=== PATIENT | female | born 1965 | race African-American/Black ===

== ENCOUNTER 2016-12-22 17:42 | Emergency (ER) | payer MEDICAID, OTHER ==
[~2016-12-22] VITALS: Ht 167.6 cm; Wt 90.0 kg
[2016-12-22] MEDS ORDERED: methylPREDNISolone SOD SUCC 125 MG/2 ML ONE ×2 (17:46→22:23)
[2016-12-22] MEDS: RACEPINEPHRINE INH 2.25%, 0.5ML NPPB PRN (17:52)
[2016-12-22] MEDS ORDERED: SODIUM CHLORIDE 0.9% 1,000ML IVBOLUS ONE (18:00)
[2016-12-22] MEDS ORDERED: methylPREDNISolone SOD SUCC 125 MG/2 ML IVPush ONE (18:00)
[2016-12-22] MEDS ORDERED: EPINEPHRINE 1 MG/ML, 1ML SQ ONE (18:00)
[2016-12-22] MEDS ORDERED: LORazepam 2 MG/ML, 1ML IVPush ONE (18:00)
[2016-12-22] MEDS ORDERED: PLEASE ENTER HEIGHT AND WEIGHT MC SCH (18:00)
[2016-12-22] MEDS ORDERED: SODIUM CHLORIDE FLUSH 10ML SYR IVF ONE (18:00)
[2016-12-22] MEDS ORDERED: LORazepam 2 MG/ML, 1ML ONE (18:02)
[2016-12-22] MEDS ORDERED: EPINEPHRINE 1 MG/ML, 1ML ONE (18:02)
[2016-12-22 18:29] LABS: HEMATOCRIT 43.4 % (34.6-47.8); HEMOGLOBIN 14.1 g/dL (11.7-16.4); WHITE BLOOD COUNT 15.7 x10^3/uL (3.4-10)
[2016-12-22] MEDS ORDERED: PLEASE ENTER ALLERGIES MC SCH ×2 (18:30)
[2016-12-22 18:41] LABS: BLOOD UREA NITROGEN 19 mg/dL (7-18)
[2016-12-22 18:50] LABS: DIFF TOTAL CELLS COUNTED 100 CELL DIFF
[2016-12-22 18:51] LABS: ASPARTATE AMINO TRANSFERASE 22 U/L (15-37)
[2016-12-22 19:01] LABS: ANISOCYTOSIS 1+; LARGE PLATELETS 1+
[2016-12-22 19:03] LABS: VERIFY COUNTS? YES
[2016-12-22] MEDS ORDERED: FAMOTIDINE 20 MG/2 ML ONE (20:55)
[2016-12-22] MEDS ORDERED: FAMOTIDINE 20 MG/2 ML IVP ONE (21:00)
[2016-12-22] MEDS ORDERED: FAMOTIDINE 20 MG/2 ML IVPush SCH (21:30)
[2016-12-22] MEDS ORDERED: methylPREDNISolone SOD SUCC 125 MG/2 ML IVPush SCH (21:30)
[2016-12-22] MEDS ORDERED: ACETAMINOPHEN 325 MG TABLET PO PRN (21:30)
[2016-12-22] MEDS ORDERED: BISACODYL 10 MG SUPP PR PRN (21:30)
[2016-12-22] MEDS ORDERED: SODIUM CHLORIDE FLUSH 10ML SYR IVF SCH (21:30)
[2016-12-22] MEDS ORDERED: SODIUM CHLORIDE FLUSH 10ML SYR IVF PRN (21:30)
[2016-12-22] MEDS ORDERED: POLYETHYLENE GLYCOL 17 GM PACKET PO PRN (21:30)
[2016-12-22] MEDS ORDERED: HEPARIN 5,000 UNITS/ML, 1ML SQ SCH (21:30)
[2016-12-22] MEDS ORDERED: ONDANSETRON 2MG/ML, 2ML IVPush PRN (21:30)
[2016-12-22] MEDS ORDERED: POTASSIUM CHLORIDE 20 MEQ TAB.ER.PRT PO ONE (22:00)
[2016-12-22] MEDS ORDERED: DIPHENHYDRAMINE 50 MG/ML, 1ML IVPush PRN (22:00)
[2016-12-22] MEDS ORDERED: POTASSIUM CHLORIDE 20 MEQ TAB.ER.PRT ONE (22:23)
[2016-12-22 23:14] VITALS: BP 105/78
[2016-12-23] MEDS ORDERED: SENNA/DOCUSATE TABLET PO SCH (09:00)
== END 2016-12-22 23:28 | disposition left against medical advice (07) ==
LOC: ED 21:44 → EDIP 22:14 → UNDOADMIN 22:14 → ED 23:28
DX: T78.3XXA Angioneurotic edema, initial encounter (principal); F12.10 Cannabis abuse, uncomplicated; F17.210 Nicotine dependence, cigarettes, uncomplicated; I10 Essential (primary) hypertension; E66.9 Obesity, unspecified; Y92.511 Restaurant or cafe as the place of occurrence of the external cause
CPT/HCPCS: 36415; 71010; 80053; 83036; 83735; 85025; 93005; 94640; 96361; 96372; 96374; 96375; 96376; 99291; J0171; J2060; J2930; J7030; S0028